=== PATIENT | male | born 1965 | race Caucasian/White ===

== ENCOUNTER 2022-11-21 07:19 | Day surgery (SDC) | payer MEDICARE, MEDICAID ==
[~2022-11-21] VITALS: Ht 182.9 cm; Wt 103.0 kg
[~2022-11-21 07:19] MED LIST: ALPRAZOLAM1 MG PO; PAROXETINE40 M1; POTASSIUM99 MG PO; PRILOSEC OTC20 MG PO; QUETIAPINE FUMA25 MG PO
[2022-11-21 08:08] LABS: ALBUMIN 4.3 g/dL (3.2-5.0); ALKALINE PHOSPHATASE 58 u/l (38-126); ANION GAP 11 (6-22 (CALC)); BILIRUBIN, TOTAL 0.2 mg/dL (0.2-1.3); BUN 15 mg/dL (9-20); BUN/CREATININE RATIO 16 (12-20 (CALC)); CARBON DIOXIDE 30 mmol/l (22-30); CHLORIDE 104 mmol/l (95-108); CREATININE 0.9 mg/dL (0.7-1.3); GFR FOR AFR.AMER. > 60 ML/MIN (>=60 (CALC)); GFR OTHER RACES > 60 ML/MIN (>=60 (CALC)); SGOT/AST 48 u/l (17-59); SODIUM 141 mmol/l (137-146); TOTAL PROTEIN 7.3 g/dL (6.3-8.2)
[2022-11-21] MEDS ORDERED: PERCOCET 5/321 COMBO PO (09:56)
[2022-11-21 11:06] VITALS: BP 123/86
== END 2022-11-21 11:44 | disposition home or self-care (01) ==
LOC: ORM 07:19
PROVIDERS: Nurse Anesthetist, Certified Registered; ATTEND Surgery
PROC: 06BY3ZC Excision of Hemorrhoidal Plexus, Percutaneous Approach (ICD-10-PCS; principal; 2022-11-21)
DX: K64.2 Third degree hemorrhoids (principal); K64.4 Residual hemorrhoidal skin tags; Z80.0 Family history of malignant neoplasm of digestive organs
CPT/HCPCS: C9290; J0690